=== PATIENT | male | born 1950 | race African-American/Black ===

== ENCOUNTER 2017-01-28 04:13 | Inpatient (IN) | payer OTHER ==
[2017-01-28] MEDS ORDERED: NORMODYNE INJ 20 MG VIAL ONE (04:14)
[2017-01-28] MEDS ORDERED: SOLU-Medrol 125 MG VIAL ONE (04:16)
[2017-01-28] MEDS ORDERED: SOLU-Medrol 125 MG VIAL IVP ONE (04:22)
[2017-01-28] MEDS ORDERED: NORMODYNE INJ 20 MG VIAL IVP ONE (04:23)
[2017-01-28] MEDS ORDERED: DECADRON JET NEB (RESP USE) NEB ONE (04:24)
[2017-01-28 04:28] LABS: BASOPHILS % (AUTO) 0.5 % (0.2-1.0); EOSINOPHILS # (AUTO) 0.3 x10^3/uL (0.0-0.2); EOSINOPHILS % (AUTO) 3.4 % (0.9-2.9); HEMATOCRIT 39.5 % (42.0-54.0); LYMPHOCYTES # (AUTO) 2.6 X10^3/uL (1.3-2.9); LYMPHOCYTES % (AUTO) 27.7 % (21.0-51.0); MEAN CORPUSCULAR HEMOGLOBIN 29.1 pg (27.0-34.0); MEAN CORPUSCULAR HGB CONC 32.8 g/dL (33.0-35.0); MEAN CORPUSCULAR VOLUME 88.5 fL (80.0-100.0); MEAN PLATELET VOLUME 7.8 fL (7.4-11.0); MONOCYTES # (AUTO) 0.7 x10^3/uL (0.3-0.8); MONOCYTES % (AUTO) 7.7 % (0.0-13.0); NEUTROPHILS # (AUTO) 5.8 x10^3/uL (2.2-4.8); NEUTROPHILS % (AUTO) 60.7 % (42.0-75.0); PLATELET COUNT 292 X10^3/uL (150.0-450.0); RED BLOOD COUNT 4.46 X10^6/uL (4.7-6.0); RED CELL DISTRIBUTION WIDTH 14.5 % (11.6-16.5); WHITE BLOOD COUNT 9.5 X10^3/uL (3.6-10.0)
[2017-01-28] MEDS: DUONEB 0.5 MG/3 MG NEB SCH ×6 (04:30→21:21)
[2017-01-28 04:36] LABS: ALANINE AMINOTRANSFERASE 29 Units/L (12-78); ALBUMIN 2.9 g/dL (3.4-5.0); ALKALINE PHOSPHATASE 94 Units/L (46-116); ASPARTATE AMINO TRANSFERASE 37 Units/L (15-37); BLOOD UREA NITROGEN 11 mg/dL (7-18); CALCIUM 8.1 mg/dL (8.5-10.1); CARBON DIOXIDE 31.5 mmol/L (21-32); CHLORIDE 108 mmol/L (98-107); COR NA(FOR HYPERGLY) 145 mmol/L (136-145); CREATININE 1.41 mg/dL (0.70-1.30); SODIUM 144 mmol/L (136-145); TOTAL PROTEIN 7.2 g/dL (6.4-8.2); eGFR BLACK RACES > 60 (>60); eGFR NON BLACK RACES 54 (>60)
--- NOTE | 2017-01-28 04:40 | DR.PEDCOUG ---
HPI - Time Seen Time seen: 04:10 - Complaint Chief Complaint Doctors Comments: Patient presented to the ED via POV with complaint that could not breath. He was diaphoretic in respiratory distress with intercostal rectractions. He was hypertensive BP 277/141. PMH - Past Surgical History Past Surgical History: Yes (unknown) - Vaccines Hx Measles, Mumps, Rubella Vaccination: Yes Hx Varicella Vaccination: Yes Pneumococcal Vaccine Every 5 Yrs: No Hx Meningococcal Vaccination: Yes ROS (Ped) - Review of Systems Constitutional: Diaphoresis Eyes: No Symptoms Reported ENTM: No Symptoms Reported Respiratoy: Short of Breath Cardiovascular: No Symptoms Reported Gastrointestinal/Abdominal: No Symptoms Reported Genitourinary: No Symptoms Reported Neurological: No Symptoms Reported Musculoskeletal: No Symptoms Reported Integumentary: No Symptoms Reported Hematologic/Lymphatic: No Symptoms Reported Endocrine: No Symptoms Reported Psychiatric: No Symptoms Reported All Other Systems: Reviewed and Negative PE - Vitals Vitals: Temperature 99.0 F Pulse Rate [Apical] 89 Pulse Rate 110 Respiratory Rate 22 Blood Pressure [Right Arm] 166/94 Blood Pressure [Left Arm] 158/86 Blood Pressure 258/134 O2 Sat by Pulse Oximetry 100 - General Limitations: No Limitations - Head Head Exam: Normal Inspection, Atraumatic - Eyes Eye exam: Normal Appearance, PERRL, EOMI - ENT ENT Exam: Normal Exam External Ear Exam: Normal External Inspection TM/Canal Exam: Bilateral Normal Nose Exam: Normal Nose Exam Nasal Speculum Exam: Bilateral Normal Mouth Exam: Normal Inspection Teeth Exam: Normal Inspection Throat Exam: Normal Inspection - Neck Neck Exam: Other (supraclavicular retraction) - Chest Chest Inspection: Normal Inspection, Other (intercostal retraction) - Respiratory Respiratory Exam: Accessory Muscle Use, Respiratory Distress Respiratory Exam: Bilateral Wheezing (inspiratory/exp) - Cardiovascular Cardiovascular Exam: Tachycardia - Abdominal Exam Abdominal Exam: Normal Inspection Abdominal Tenderness: negative: RUQ, RLQ, LUQ, LLQ, Epigastrium, Suprapubic, Diffuse, Mild, Moderate, Severe, Other - Extremities Extremities Exam: Normal Inspection, Full ROM - Back Back Exam: Normal Inspection - Neurologic Neurological Exam: Alert, Oriented X3, CN II-XII Intact - Psychiatric Psychiatric Exam: Normal Affect - Skin Skin Exam: Warm, Dry, Intact Course - Treatment Treatment: DuoNebs,oxygen,antihypertensive,NTG, morphine, Non Rebreather - Reevaluation 1st: Improved - Consultation Called: 06:10 (Dr Elkins agreed to admit for further evaluation and treatment) ROR - Labs Reviewed Laboratory Results Reviewed?: Yes Result Diagrams: 01/28/17 04:15 01/28/17 04:15 Laboratory: WBC 9.5 X10^3/uL (3.6-10.0) 01/28/17 04:15 RBC 4.46 X10^6/uL (4.7-6.0) L 01/28/17 04:15 Hgb 13.0 g/dL (13.5-18.0) L 01/28/17 04:15 Hct 39.5 % (42.0-54.0) L 01/28/17 04:15 MCV 88.5 fL (80.0-100.0) 01/28/17 04:15 MCH 29.1 pg (27.0-34.0) 01/28/17 04:15 MCHC 32.8 g/dL (33.0-35.0) L 01/28/17 04:15 RDW 14.5 % (11.6-16.5) 01/28/17 04:15 Plt Count 292 X10^3/uL (150.0-450.0) 01/28/17 04:15 MPV 7.8 fL (7.4-11.0) 01/28/17 04:15 Neut % 60.7 % (42.0-75.0) 01/28/17 04:15 Lymph % 27.7 % (21.0-51.0) 01/28/17 04:15 [place] % 7.7 % (0.0-13.0) 01/28/17 04:15 Eos % 3.4 % (0.9-2.9) H 01/28/17 04:15 Baso % 0.5 % (0.2-1.0) 01/28/17 04:15 Neut # 5.8 x10^3/uL (2.2-4.8) H 01/28/17 04:15 Lymph # 2.6 X10^3/uL (1.3-2.9) 01/28/17 04:15 [place] # 0.7 x10^3/uL (0.3-0.8) 01/28/17 04:15 Eos # 0.3 x10^3/uL (0.0-0.2) H 01/28/17 04:15 Baso # 0.0 X10^3/uL (0.0-0.1) 01/28/17 04:15 Absolute Nucleated RBC 0.0 /100WBC 01/28/17 04:15 Sample Site R rad 01/28/17 05:33 ABG pH 7.240 (7.35-7.45) L 01/28/17 05:33 ABG pCO2 70.0 mmHg (35.0-45.0) H* 01/28/17 05:33 ABG pO2 447.0 mmHg (80.0-100.0) H 01/28/17 05:33 ABG HCO3 30.0 mmol/L (22-26) H 01/28/17 05:33 ABG O2 Saturation 100.0 % (90-100) 01/28/17 05:33 ABG Base Excess 0.9 mmol/L (-2.0-2.0) 01/28/17 05:33 Tomasz Test Pos 01/28/17 05:33 A-a Gradient 179.0 mmHg 01/28/17 05:33 FiO2 100.000 01/28/17 05:33 Blood Gas Comments [facility] well, afh 01/28/17 05:33 Sodium 144 mmol/L (136-145) 01/28/17 04:15 Corrected Sodium 145 mmol/L (136-145) 01/28/17 04:15 Potassium 3.4 mmol/L (3.5-5.1) L 01/28/17 04:15 Chloride 108 mmol/L (98-107) H 01/28/17 04:15 Carbon Dioxide 31.5 mmol/L (21-32) 01/28/17 04:15 BUN 11 mg/dL (7-18) 01/28/17 04:15 Creatinine 1.41 mg/dL (0.70-1.30) H 01/28/17 04:15 Est GFR (MDRD) Af Amer > 60 (>60) 01/28/17 04:15 Est GFR (MDRD) Non-Af 54 (>60) L 01/28/17 04:15 Glucose 127 mg/dL (65-99) H 01/28/17 04:15 Calcium 8.1 mg/dL (8.5-10.1) L 01/28/17 04:15 Corrected Calcium 9.0 mg/dL (8.5-10.1) 01/28/17 04:15 Phosphorus 3.9 mg/dL (2.6-4.7) 01/28/17 04:15 Magnesium 1.2 mg/dL (1.7-2.9) L 01/28/17 04:15 Total Bilirubin 0.40 mg/dL (0.2-1.0) 01/28/17 04:15 AST 37 Units/L (15-37) 01/28/17 04:15 ALT 29 Units/L (12-78) 01/28/17 04:15 Alkaline Phosphatase 94 Units/L (46-116) 01/28/17 04:15 Creatine Kinase 245 Units/L (39-308) 01/28/17 04:15 CK-MB (CK-2) 3.3 ng/mL (0-4.0) 01/28/17 04:15 CK/CKMB % Calc 1.4 % (<4) 01/28/17 04:15 Troponin I 0.22 ng/mL (0-1.5) 01/28/17 04:15 B-Natriuretic Peptide 274 pg/mL (0-79) H 01/28/17 04:15 Total Protein 7.2 g/dL (6.4-8.2) 01/28/17 04:15 Albumin 2.9 g/dL (3.4-5.0) L 01/28/17 04:15 Globulin 4.3 g/dL (2.5-4.5) 01/28/17 04:15 Albumin/Globulin Ratio 0.7 Ratio (1.1-2.1) L 01/28/17 04:15 - XRAY XRAY Interpreted by: Radiologist (Chest: The heart is moderately enlarged and there is central vascular congestion. The interstitial markings are prominent bilaterally. No pneumothorax or pleural effusion. No focal lung parenchymal consolidation identified. ) - Diagnosis Discharge Problem: CHF (congestive heart failure), NYHA class II Qualifiers: Congestive heart failure type: systolic Congestive heart failure chronicity: acute on chronic Qualified Code(s): I50.23 - Acute on chronic systolic ( congestive) heart failure - Discharge Plan Condition: Stable - Follow ups/Referrals Follow ups/Referrals: BREONNA ORELLANA [Primary Care Provider] - 3 days - Instructions
[2017-01-28] MEDS ORDERED: ATIVAN INJ 2 MG VIAL IVP ONE (04:48)
[2017-01-28] MEDS ORDERED: ATIVAN INJ 2 MG VIAL ONE (04:48)
--- NOTE | 2017-01-28 04:55 | RAD ---
EXAM: Chest X-ray INDICATION: Shortness of breath COMPARISION: Prior exam from May 14, 2016 TECHNIQUE: Single view FINDINGS: The heart is moderately enlarged and there is central vascular congestion. The interstitial markings are prominent bilaterally. No pneumothorax or pleural effusion. No focal lung parenchymal consolidati on identified. The regional skeleton is intact. IMPRESSION: Findings are most characteristic of changes associated congestive heart failure. There is cardiomegal y, central vascular congestion, and interstitial edema. Reported By:
[2017-01-28] MEDS ORDERED: MAGNESIUM SULFATE 1 GM/100 mL PREMIX 1 GM/100 ML BAG IV ONE ×2 (04:56→07:31)
[2017-01-28] MEDS ORDERED: LASIX IVP ONE ×2 (04:57)
[2017-01-28] MEDS ORDERED: NS 1000 ML 1,000 ML IV SCH (05:00)
[2017-01-28] MEDS ORDERED: MAGNESIUM SULFATE 50% INJ ONE (05:03)
[2017-01-28] MEDS ORDERED: NS 100 ML IV 100 ML IV ONE (05:04)
[2017-01-28] MEDS ORDERED: MORPHINE SULFATE INJ 4 MG IVP ONE (05:10)
[2017-01-28] MEDS ORDERED: MORPHINE SULFATE INJ 4 MG ONE (05:12)
[2017-01-28 05:16] LABS: CKMB % 1.4 % (<4); CREATINE KINASE MB 3.3 ng/mL (0-4.0); MAGNESIUM 1.2 mg/dL (1.7-2.9); PHOSPHORUS 3.9 mg/dL (2.6-4.7); TROPONIN I 0.22 ng/mL (0-1.5)
[2017-01-28] MEDS ORDERED: NITRO-BID OINT 2% Multi-Dose tube TD ONE (05:16)
[2017-01-28] MEDS ORDERED: NITRO-BID OINT 2% Multi-Dose tube ONE (05:18)
[2017-01-28 06:06] LABS: ABG BASE EXCESS 1.9 mmol/L (-2.0-2.0)
[2017-01-28 06:07] LABS: ABG ALLEN TEST POS; ABG HCO3 30.1 mmol/L (22-26)
[2017-01-28 06:08] LABS: ABG BASE EXCESS 0.9 mmol/L (-2.0-2.0)
[2017-01-28 06:10] LABS: ABG ALLEN TEST POS
[2017-01-28 06:33] LABS: BILIRUBIN,URINE NEGATIVE (NEGATIVE); BLOOD/HEMOGLOBIN,URINE 2+ (NEGATIVE); GLUCOSE, URINE NEGATIVE (NEGATIVE); KETONES,URINE NEGATIVE (NEGATIVE); LEUKOCYTE ESTERASE ,URINE NEGATIVE (NEGATIVE); NITRITES,URINE NEGATIVE (NEGATIVE); PROTEIN,URINE 3+ (NEGATIVE); UROBILINOGEN,URINE NORMAL (NORMAL)
[2017-01-28] MEDS ORDERED: ZOFRAN INJ 4 MG VIAL IVP PRN (06:34)
[2017-01-28 06:59] LABS: APPEARANCE,URINE CLEAR (CLEAR); COLOR,URINE PALE YELLOW (YELLOW); SQUAMOUS EPITHELIAL CELL,UR RARE /HPF (NEGATIVE)
[2017-01-28 07:00] LABS: AMORPHOUS SEDIMENT,UR TRACE /HPF (NEGATIVE); BACTERIA,URINE NEGATIVE /HPF (NEGATIVE)
[2017-01-28 07:08] LABS: ABG BASE EXCESS 3.6 mmol/L (-2.0-2.0)
[2017-01-28 07:09] LABS: ABG HCO3 30.4 mmol/L (22-26)
[2017-01-28 07:10] LABS: ABG ALLEN TEST POS
[2017-01-28] MEDS ORDERED: ZESTRIL TAB 10 MG PO SCH (08:00)
[2017-01-28] MEDS: VASOTEC TAB 10 MG PO SCH ×2 (08:30→09:52)
[2017-01-28] MEDS: LASIX IVP SCH ×3 (08:30→20:11)
[2017-01-28 09:46] VITALS: BMI 23.9
[2017-01-28] MEDS: NS 1000 ML 1,000 ML IV SCH ×2 (09:53→20:22)
[2017-01-28 12:13] LABS: CKMB % 1.7 % (<4); TROPONIN I 0.17 ng/mL (0-1.5)
[2017-01-28 12:22] LABS: CREATINE KINASE MB 4.7 ng/mL (0-4.0)
[2017-01-28] MEDS: K-DUR TAB 20 MEQ PO SCH ×2 (12:23→20:12)
[2017-01-28] MEDS: NORVASC TAB 5 MG PO SCH (12:23)
[2017-01-28] MEDS ORDERED: NORCO 5/325 MG TAB PO PRN (12:28)
[2017-01-28] MEDS ORDERED: K-LYTE EFFERVESCENT PO PRN (12:42)
[2017-01-28] MEDS ORDERED: POTASSIUM CHLORIDE LIQ 20 MEQ UDC PO PRN (12:42)
[2017-01-28] MEDS ORDERED: K-DUR TAB 20 MEQ PO PRN (12:42)
[2017-01-28] MEDS ORDERED: K-RIDER 10 MEQ/NS 100 ML 10 MEQ/100 ML BAG IV PRN (12:42)
[2017-01-28] MEDS ORDERED: NORMODYNE INJ 20 MG VIAL IVP PRN (13:20)
[2017-01-28 17:20] LABS: CKMB % 1.7 % (<4); TROPONIN I 0.12 ng/mL (0-1.5)
[2017-01-28 17:27] LABS: CREATINE KINASE MB 4.6 ng/mL (0-4.0)
[2017-01-28] MEDS: COZAAR PO SCH (20:13)
--- NOTE | 2017-01-28 22:30 | DR.H&P ---
H&P - History & Physical for Day of: H&P Date: 01/28/17 - Chief Complaint Chief Complaint: SHORTNESS OF BREATH - Allergies Allergies/Adverse Reactions: Allergies Allergy/AdvReac Type Severity Reaction Status Date / Time lisinopril Allergy Verified 01/28/17 06:21 - History of Present Illness History of Present Illness: IS A 66 YEAR OLD PATIENT OF OURS WHO PRESENTED TO THE EMERGENCY ROOM WITH COMPLAINTS OF DIFFICULTY BREATHING. ON ARRIVAL, PATIENT WAS IN OBVIOUS RESPIRATORY DISTESS. HE WAS NOTED WITH INTERCOSTAL RETRACTIONS AND WAS DIAPHORETIC. PATIENT REPORTED THAT SYMPTOMS BEGAN 1 HOUR PRIOR TO ARRIVAL TO ER. PATIENT WAS ALSO NOTED TO BE HYPERTENSIVE ON ARRIVAL TO ER WITH BLOOD PRESSURE NOTED AT 258/134. OTHER VITAL SIGNS ON ARRIVAL ARE 99.0-135-36-93%. LABS AND XRAYS WERE OBTAINED. ABNORMAL LAB VALUES INCLUDE RBC 4.46, HGB 13, HCT 39.5, POTASSIUM 3.4, CHLORIDE 108, CREATININE 1.41 , GLUCOSE 127, CALCIUM 8.1, MAGNESIUM 1.2, ALBUMIN 2.9. URINALYSIS REPORTED WBC 1-4, RBC 4-8, PROTEIN 3+, OCCULT BLOOD 2+. ABG REPORTED PH 7.280, PC02 64, P02 199, HC03 30.1. CHEST XRAY REPORTED FINDINGS MOST CHARACTERISTIC OF CHANGES ASSOCIATED WITH CONGESTIVE HEART FAIURE. THERE IS CARDIOMEGALY, CENTRAL VASCULAR CONGESTION, AND INTERSTITIAL EDEMA. PATIENT WAS PLACED ON BIPAP. HE WAS GIVEN SOLUMEDROL 125MG, NORMODYNE 20MG IV, DECADRON TX, ATIVAN 1MG IV, LASIX 40MG IV, MORPHINE 4MG IV, NITRO-BID OINTMENT TO CHEST WALL, MAGNESIUM RIDER X 2, AND VASOTEC 10MG. WE ADMITTED PATIENT FOR FURTHER TREATMENT AND EVALUATION OF CHF. HE WAS STARTED ON NS AT 50ML/HR, LASIX 40MG IV BID, DUONEB TX , LISOPRIL 10MG DAILY, ZOFRAN 4MG IV Q8H PRN, LOSARTAN 100MG HS AMLODIPINE 5MG DAILY, AND POTASSIUM 40MEQ PO BID X 2 DOSES. WE PLAN TO RECHECK AM LABS AND CONTINUE TO MONITOR PATIENT. - Past Medical History Past Medical History: Arthritis, Asthma, CHF, COPD, CVA, Hypertension, PUD - Past Surgical History Additional Surgical History: Prostate Surgery, Right Cataract Surgery - Family History Family Medical History: Hypertension - Social History Does patient currently use any type of tobacco product: Yes Have you used tobacco products in the last 12 months: Yes Type of Tobacco Use: Cigarettes How many years tobacco product used: 50 Alcohol Use: Occasionally Drug Use: None - Medications Home Medications: Amlodipine Besylate [NORVASC 10 MG *] 10 mg PO DAILY 01/28/17 [History Confirmed 01/28/17] Aspirin [ASPIRIN 325 MG *] 325 mg PO DAILY 01/28/17 [History Confirmed 01/28/17] Budesonide-Formoterol [SYMBICORT INH 160/4.5 mcg] 1 puff IN Q12H 01/28/17 [ History Confirmed 01/28/17] Hydralazine HCl 25 mg PO DAILY 01/28/17 [History Confirmed 01/28/17] Metoprolol Tartrate [Lopressor Tab 50 mg] 100 mg PO HS 01/28/17 [History Confirmed 01/28/17] Tamsulosin HCl [Flomax] 0.4 mg PO DAILY 01/28/17 [History Confirmed 01/28/17] - Review of Systems Constitutional: No Symptoms Reported Eyes: No Symptoms Reported ENT: No Symptoms Reported Respiratory: See HPI, Shortness of Breath, Wheezing Cardiovascular: No Symptoms Reported Gastrointestinal: No Symptoms Reported Genitourinary: No Symptoms Reported Musculoskeletal: No Symptoms Reported Skin: No Symptoms Reported Neurological: No Symptoms Reported - Physical Exam Vital Signs: Temperature 98.4 F Pulse Rate [Apical] 88 Pulse Rate 100 Respiratory Rate 23 Blood Pressure [Right Arm] 191/87 Blood Pressure [Left Arm] 158/86 Blood Pressure 258/134 O2 Sat by Pulse Oximetry 95 Oriented: Normal Eyes: Normal Ear: Normal Nose: Normal Throat: Normal Respiratory: Wheezes Throughout Cardiovascular: Tachycardia : Normal Auscultation: Bowel Sounds: Normal Palpation: Normal Tenderness: Normal Skin: Normal Musculoskeletal: Normal Psychiatric: Normal Mood Description: Calm Affect: Normal Speech Pattern: Clear - Assessment/Plan (1) CHF (congestive heart failure), NYHA class II Qualifiers: Congestive heart failure type: systolic Congestive heart failure chronicity : acute on chronic Qualified Code(s): I50.23 - Acute on chronic systolic ( congestive) heart failure Status: Acute Plan: LASIX 40MG IV BID, DUONEBS, CONTINUE TO [facility] (2) Acute and chronic respiratory failure ([id number]) Qualifiers: Respiratory failure complication: hypoxia and hypercapnia Qualified Code(s) : J96.21 - Acute and chronic respiratory failure with hypoxia; J96.22 - Acute and chronic respiratory failure with hypercapnia Status: Acute Plan: DUONEB TX, PULMOCORT TX, LASIX 40MG IV BID, SUPPLEMENTAL OXYGEN, TELEMETRY , CONTINUE TO MONITOR (3) COPD (chronic obstructive pulmonary disease) Qualifiers: COPD type: unspecified COPD Qualified Code(s): J44.9 - Chronic obstructive pulmonary disease, unspecified Status: Acute Plan: DUONEB TX, PULMOCORT TX, LASIX 40MG IV BID, SUPPLEMENTAL OXYGEN, TELEMETRY , CONTINUE TO MONITOR (4) Hypertension Qualifiers: Hypertension type: essential hypertension Qualified Code(s): I10 - Essential (primary) hypertension Status: Acute Plan: LISINOPRIL 10MG DAILY, LOSARTAN 100MG HS, AMLODIPINE 5MG DAILY
[2017-01-29] MEDS: DUONEB 0.5 MG/3 MG NEB SCH ×6 (01:30→20:26)
[2017-01-29 05:00] LABS: BASOPHILS % (AUTO) 0 % (0.2-1.0); HEMATOCRIT 35.5 % (42.0-54.0); HEMOGLOBIN 11.9 g/dL (13.5-18.0); LYMPHOCYTES # (AUTO) 0.6 X10^3/uL (1.3-2.9); MEAN CORPUSCULAR HEMOGLOBIN 28.9 pg (27.0-34.0); MEAN CORPUSCULAR HGB CONC 33.5 g/dL (33.0-35.0); MEAN CORPUSCULAR VOLUME 86.2 fL (80.0-100.0); MEAN PLATELET VOLUME 8.5 fL (7.4-11.0); MONOCYTES # (AUTO) 0.7 x10^3/uL (0.3-0.8); PLATELET COUNT 238 X10^3/uL (150.0-450.0); RED BLOOD COUNT 4.12 X10^6/uL (4.7-6.0); RED CELL DISTRIBUTION WIDTH 14.2 % (11.6-16.5); WHITE BLOOD COUNT 11.2 X10^3/uL (3.6-10.0)
[2017-01-29 05:08] LABS: ALANINE AMINOTRANSFERASE 30 Units/L (12-78); ALBUMIN 2.5 g/dL (3.4-5.0); ALKALINE PHOSPHATASE 74 Units/L (46-116); ASPARTATE AMINO TRANSFERASE 30 Units/L (15-37); BLOOD UREA NITROGEN 24 mg/dL (7-18); CALCIUM 8.4 mg/dL (8.5-10.1); CARBON DIOXIDE 29.5 mmol/L (21-32); CHLORIDE 106 mmol/L (98-107); COR CA(FOR HYPOALB) 9.6 mg/dL (8.5-10.1); CREATININE 1.48 mg/dL (0.70-1.30); SODIUM 142 mmol/L (136-145); TOTAL PROTEIN 6.1 g/dL (6.4-8.2); eGFR BLACK RACES > 60 (>60); eGFR NON BLACK RACES 51 (>60)
[2017-01-29 05:56] LABS: ABG ALLEN TEST POS
[2017-01-29] MEDS ORDERED: MAGNESIUM SULFATE 1 GM/100 mL PREMIX 2 GM/200 ML BAG IV ONE (06:40)
--- NOTE | 2017-01-29 07:03 | RAD ---
HISTORY: CHF Study: AP chest. Comparison: 01/28/2017 Findings: Allowing for differences in technique, positioning, and degree of inspiration, there has been no sign ificant interval change in the radiographic appearance of the chest. Mild prominence the central pulmonary vasculature and perihilar interstitium noted. No focal airspace opacities are seen. Cardiac silhouette is mildly enlarged, stable. IMPRESSION: 1. No significant interval change with findings as above. Stable cardiomegaly and mild venous conges tive changes are noted. Reported By:
[2017-01-29] MEDS: MAGNESIUM SULFATE 1 GM/100 mL PREMIX 1 GM/100 ML BAG IV SCH ×3 (07:15→08:17)
[2017-01-29] MEDS: LASIX IVP SCH ×2 (08:24→20:08)
[2017-01-29] MEDS: NORVASC TAB 5 MG PO SCH (08:24)
[2017-01-29] MEDS ORDERED: NORVASC TAB 5 MG PO SCH (09:53)
[2017-01-29] MEDS ORDERED: NORVASC TAB 5 MG PO ONE (10:13)
[2017-01-29] MEDS: ALBUMIN HUMAN 25%- 100ML 100 ML IV SCH (10:18)
[2017-01-29] MEDS: NS 1000 ML 1,000 ML IV SCH ×2 (10:21→21:59)
[2017-01-29] MEDS: TOPROL XL PO SCH (10:21)
[2017-01-29] MEDS ORDERED: VISTARIL PO PRN (10:31)
[2017-01-29] MEDS: COZAAR PO SCH (20:08)
[2017-01-29] MEDS ORDERED: PATIENT'S HOME MEDICATION (Budesonide-Formoterol 1 PUFF) IN SCH (22:30)
[2017-01-29] MEDS: PULMICORT NEB TX 0.5 MG NEB SCH (23:15)
[2017-01-30] MEDS: DUONEB 0.5 MG/3 MG NEB SCH ×5 (01:15→16:39)
[2017-01-30 04:25] LABS: BASOPHILS % (AUTO) 0.3 % (0.2-1.0); EOSINOPHILS # (AUTO) 0.1 x10^3/uL (0.0-0.2); EOSINOPHILS % (AUTO) 0.4 % (0.9-2.9); HEMATOCRIT 37.8 % (42.0-54.0); HEMOGLOBIN 12.6 g/dL (13.5-18.0); LYMPHOCYTES # (AUTO) 1.4 X10^3/uL (1.3-2.9); LYMPHOCYTES % (AUTO) 10.3 % (21.0-51.0); MEAN CORPUSCULAR HEMOGLOBIN 28.6 pg (27.0-34.0); MEAN CORPUSCULAR HGB CONC 33.4 g/dL (33.0-35.0); MEAN CORPUSCULAR VOLUME 85.6 fL (80.0-100.0); MEAN PLATELET VOLUME 8.4 fL (7.4-11.0); MONOCYTES # (AUTO) 1.1 x10^3/uL (0.3-0.8); MONOCYTES % (AUTO) 7.6 % (0.0-13.0); NEUTROPHILS # (AUTO) 11.3 x10^3/uL (2.2-4.8); NEUTROPHILS % (AUTO) 81.4 % (42.0-75.0); PLATELET COUNT 241 X10^3/uL (150.0-450.0); RED BLOOD COUNT 4.41 X10^6/uL (4.7-6.0); RED CELL DISTRIBUTION WIDTH 14.2 % (11.6-16.5); WHITE BLOOD COUNT 13.9 X10^3/uL (3.6-10.0)
[2017-01-30 04:34] LABS: ALANINE AMINOTRANSFERASE 27 Units/L (12-78); ALBUMIN 2.9 g/dL (3.4-5.0); ALKALINE PHOSPHATASE 74 Units/L (46-116); ASPARTATE AMINO TRANSFERASE 25 Units/L (15-37); BLOOD UREA NITROGEN 21 mg/dL (7-18); CALCIUM 8.6 mg/dL (8.5-10.1); CARBON DIOXIDE 32.1 mmol/L (21-32); CHLORIDE 102 mmol/L (98-107); COR CA(FOR HYPOALB) 9.5 mg/dL (8.5-10.1); CREATININE 1.45 mg/dL (0.70-1.30); SODIUM 141 mmol/L (136-145); TOTAL PROTEIN 6.9 g/dL (6.4-8.2); eGFR BLACK RACES > 60 (>60); eGFR NON BLACK RACES 52 (>60)
[2017-01-30] MEDS: ALBUMIN HUMAN 25%- 100ML 100 ML IV SCH (08:35)
--- NOTE | 2017-01-30 08:35 | RAD ---
HISTORY: Shortness of breath Study: Portable AP chest Comparison: Yesterday Findings: The trachea is midline. The cardiac silhouette is mildly enlarged with a tortuous aorta.. The lungs are very well inflated and grossly clear. There is no pleural effusion or pneumothorax or vascular c ongestion on today's exam.. The bony thorax is unremarkable. IMPRESSION: 1. Hyperinflation compatible with COPD 2. Mild cardiomegaly with a tortuous aorta. Resolution of vascular congestion. Reported By:
[2017-01-30] MEDS: TOPROL XL PO SCH (08:36)
[2017-01-30] MEDS: LASIX IVP SCH (08:37)
[2017-01-30] MEDS: MAGNESIUM SULFATE 1 GM/100 mL PREMIX 1 GM/100 ML BAG IV SCH ×2 (08:55→10:00)
[2017-01-30] MEDS ORDERED: FLOMAX PO SCH (09:00)
--- NOTE | 2017-01-30 09:12 | PCM.PROG ---
Progress Note - Progress Note for Day of Date: 01/29/17 - Subjective Subjective: WAS ADMITTED FOR CONGESTIVE HEART FAILURE. HE IS ALERT AND ORIENTED, LYING IN BED ON MORNING ROUNDS. HE IS NOTED WITH COMPLAINTS OF SHORTNESS OF BREATH AND COUGH. HE IS CURRENTLY ON NASAL CANNULA WITH OXYGEN AT 2LPM. HE IS NOTED TO BE ON TELEMETRY. ATRIAL FLUTTER NOTED WITH HR AT 106 BMP. ON EXAMINATION, LUNGS ARE NOTED WITH WHEEZING BILATERALLY TO AUSCULTATION. ABDOMEN IS ROUND, SOFT, AND NON-TENDER. NORMAL BOWEL SOUNDS NOTED IN ALL QUADRANTS. VITAL SIGNS THIS MORNING ARE 98.1-106-21-97%193/89. CBC, CMP, ABG, AND CHEST XRAY WERE OBTAINED. ABNORMAL LAB VALUES INCLUDE THE FOLLOWING: WBC 11.2, RBC 4.12, HGB 11.9, HCT 35.5, BUN 24, CREATININE 1.48, GLUCOSE 106, CALCIUM 8.4, MAGNESIUM 1.3, TOTAL PROTEIN 6.1, ALBUMIN 2.5. CHEST XRAY REPORTED NO SIGNIFICANT INTERVAL CHANGE, STABLE CARDIOMEGALY AND MILD VENOUS CONGESTIVE CHANGES. PATIENTS BLOOD PRESSURE REMAINS ELEVATED DESPITE RECENT CHANGES TO BLOOD PRESSURE MEDICATIONS. WE WILL START ALBUMIN 25% DAILY, NORVASC 10MG DAILY , AND METOPROLOL XL 25MG DAILY. WE WILL GIVE LASIX 40MG IV Q12H X 2 DOSES. WE PLAN TO RECHECK CBC, CMP, AND CHEST XRAY IN THE MORNING AND CONTINUE TO MONITOR PATIENT. - Past Medical Family Social History Past Med/Fam/Surg Hx: No changes since H&P Allergies: Allergies lisinopril Allergy (Verified 01/28/17 06:21) - Review of Systems ROS: No change since H&P - Vital Signs and I&O's Vital Signs: Temperature 99.3 F Pulse Rate [Apical] 85 Pulse Rate 90 Respiratory Rate 18 Blood Pressure [Right Arm] 153/88 Blood Pressure [Left Arm] 158/86 Blood Pressure 258/134 O2 Sat by Pulse Oximetry 98 Intake and Output: Intake & Output 01/27/17 01/28/17 01/29/17 01/30/17 11:59 11:59 11:59 11:59 Intake Total 7142 2229 Output Total 1000 9130 4300 Balance -7283 -9619 -6447 - Physical Exam Oriented: Normal Eyes: Normal Ear: Normal Nose: Normal Throat: Normal Respiratory: Wheezes Cardiovascular: Tachycardia : Normal Auscultation: Bowel Sounds: Normal Palpation: Normal Tenderness: Normal Skin: Normal Musculoskeletal: Normal Psychiatric: Normal Mood Description: Calm Affect: Normal Speech Pattern: Clear, Appropriate - Laboratory and Diagnostics Result Diagrams: 01/30/17 03:20 01/30/17 03:20 Labs: Laboratory WBC 13.9 X10^3/uL (3.6-10.0) H 01/30/17 03:20 RBC 4.41 X10^6/uL (4.7-6.0) L 01/30/17 03:20 Hgb 12.6 g/dL (13.5-18.0) L 01/30/17 03:20 Hct 37.8 % (42.0-54.0) L 01/30/17 03:20 MCV 85.6 fL (80.0-100.0) 01/30/17 03:20 MCH 28.6 pg (27.0-34.0) 01/30/17 03:20 MCHC 33.4 g/dL (33.0-35.0) 01/30/17 03:20 RDW 14.2 % (11.6-16.5) 01/30/17 03:20 Plt Count 241 X10^3/uL (150.0-450.0) 01/30/17 03:20 MPV 8.4 fL (7.4-11.0) 01/30/17 03:20 Neut % 81.4 % (42.0-75.0) H 01/30/17 03:20 Lymph % 10.3 % (21.0-51.0) L 01/30/17 03:20 [place] % 7.6 % (0.0-13.0) 01/30/17 03:20 Eos % 0.4 % (0.9-2.9) L 01/30/17 03:20 Baso % 0.3 % (0.2-1.0) 01/30/17 03:20 Neut # 11.3 x10^3/uL (2.2-4.8) H 01/30/17 03:20 Lymph # 1.4 X10^3/uL (1.3-2.9) 01/30/17 03:20 [place] # 1.1 x10^3/uL (0.3-0.8) H 01/30/17 03:20 Eos # 0.1 x10^3/uL (0.0-0.2) 01/30/17 03:20 Baso # 0.0 X10^3/uL (0.0-0.1) 01/30/17 03:20 Absolute Nucleated RBC 0.0 /100WBC 01/30/17 03:20 Sample Site R rad 01/29/17 05:44 ABG pH 7.450 (7.35-7.45) 01/29/17 05:44 ABG pCO2 46.0 mmHg (35.0-45.0) H 01/29/17 05:44 ABG pO2 86.0 mmHg (80.0-100.0) 01/29/17 05:44 ABG HCO3 32.0 mmol/L (22-26) H* 01/29/17 05:44 ABG O2 Saturation 97.0 % (90-100) 01/29/17 05:44 ABG Base Excess 7.0 mmol/L (-2.0-2.0) H 01/29/17 05:44 Tomasz Test Pos 01/29/17 05:44 A-a Gradient 6.0 mmHg 01/29/17 05:44 FiO2 21.000 01/29/17 05:44 Blood Gas Comments [facility] well, af 01/29/17 05:44 Sodium 141 mmol/L (136-145) 01/30/17 03:20 Corrected Sodium TNP 01/30/17 03:20 Potassium 3.4 mmol/L (3.5-5.1) L 01/30/17 03:20 Chloride 102 mmol/L (98-107) 01/30/17 03:20 Carbon Dioxide 32.1 mmol/L (21-32) H 01/30/17 03:20 BUN 21 mg/dL (7-18) H 01/30/17 03:20 Creatinine 1.45 mg/dL (0.70-1.30) H 01/30/17 03:20 Est GFR (MDRD) Af Amer > 60 (>60) 01/30/17 03:20 Est GFR (MDRD) Non-Af 52 (>60) L 01/30/17 03:20 Glucose 101 mg/dL (65-99) H 01/30/17 03:20 Calcium 8.6 mg/dL (8.5-10.1) 01/30/17 03:20 Corrected Calcium 9.5 mg/dL (8.5-10.1) 01/30/17 03:20 Phosphorus 3.9 mg/dL (2.6-4.7) 01/28/17 04:15 Magnesium 1.6 mg/dL (1.7-2.9) L 01/30/17 03:20 Total Bilirubin 0.70 mg/dL (0.2-1.0) 01/30/17 03:20 AST 25 Units/L (15-37) 01/30/17 03:20 ALT 27 Units/L (12-78) 01/30/17 03:20 Alkaline Phosphatase 74 Units/L (46-116) 01/30/17 03:20 Creatine Kinase 272 Units/L (39-308) 01/28/17 16:30 CK-MB (CK-2) 4.6 ng/mL (0-4.0) H* 01/28/17 16:30 CK/CKMB % Calc 1.7 % (<4) 01/28/17 16:30 Troponin I 0.12 ng/mL (0-1.5) 01/28/17 16:30 B-Natriuretic Peptide 274 pg/mL (0-79) H 01/28/17 04:15 Total Protein 6.9 g/dL (6.4-8.2) 01/30/17 03:20 Albumin 2.9 g/dL (3.4-5.0) L 01/30/17 03:20 Globulin 4.0 g/dL (2.5-4.5) 01/30/17 03:20 Albumin/Globulin Ratio 0.7 Ratio (1.1-2.1) L 01/30/17 03:20 Specimen Type Catherized urine 01/28/17 06:22 Urine Color Pale yellow (YELLOW) 01/28/17 06:22 Urine Appearance Clear (CLEAR) 01/28/17 06:22 Urine pH 6.0 (5.0 - 8.0) 01/28/17 06:22 Ur Specific [place] 1.005 (1.000-1.030) 01/28/17 06:22 Urine Protein 3+ (NEGATIVE) 01/28/17 06:22 Urine Glucose (UA) Negative (NEGATIVE) 01/28/17 06:22 Urine Ketones Negative (NEGATIVE) 01/28/17 06:22 Urine Occult Blood 2+ (NEGATIVE) 01/28/17 06:22 Urine Nitrite Negative (NEGATIVE) 01/28/17 06:22 Urine Bilirubin Negative (NEGATIVE) 01/28/17 06:22 Urine Urobilinogen Normal (NORMAL) 01/28/17 06:22 Ur Leukocyte Esterase Negative (NEGATIVE) 01/28/17 06:22 Urine RBC 04 - 08 /HPF (NEGATIVE) 01/28/17 06:22 Urine WBC 01 - 04 /HPF (NEGATIVE) 01/28/17 06:22 Ur Squamous Epith Cells Rare /HPF (NEGATIVE) 01/28/17 06:22 Amorphous Sediment Trace /HPF (NEGATIVE) 01/28/17 06:22 Urine Bacteria Negative /HPF (NEGATIVE) 01/28/17 06:22 Ur Culture Indicated? No/not indicated 01/28/17 06:22 - Plan (1) Acute and chronic respiratory failure ([id number]) Status: Acute Qualifiers: Respiratory failure complication: hypoxia and hypercapnia Qualified Code(s) : J96.21 - Acute and chronic respiratory failure with hypoxia; J96.22 - Acute and chronic respiratory failure with hypercapnia Plan: DUONEB TX, PULMOCORT TX, LASIX 40MG IV BID, SUPPLEMENTAL OXYGEN, TELEMETRY , CONTINUE TO MONITOR (2) CHF (congestive heart failure), NYHA class II Status: Acute Qualifiers: Congestive heart failure type: systolic Congestive heart failure chronicity : acute on chronic Qualified Code(s): I50.23 - Acute on chronic systolic ( congestive) heart failure Plan: LASIX 40MG IV BID, DUONEBS, [facility] (3) COPD (chronic obstructive pulmonary disease) Status: Acute Qualifiers: COPD type: unspecified COPD Qualified Code(s): J44.9 - Chronic obstructive pulmonary disease, unspecified Plan: DUONEB TX, PULMOCORT TX, LASIX 40MG IV BID, SUPPLEMENTAL OXYGEN, TELEMETRY , CONTINUE TO MONITOR (4) Hypertension Status: Acute Qualifiers: Hypertension type: essential hypertension Qualified Code(s): I10 - Essential (primary) hypertension Plan: TOPROL 25MG DAILY, LOSARTAN 100MG HS, AMLODIPINE 10MG DAILY, LABETALOL PROTOCOL, CONTINUE TO MONITOR (5) Hypoalbuminemia Status: Acute (6) Hypomagnesemia Status: Acute Plan: MAGNESIUM SULFATE RIDERS, CONTINUE TO MONITOR LABS (7) Hypoalbuminemia Status: Acute Plan: ALBUMIN 25% IV DAILY, CONTINUE TO MONITOR
[2017-01-30] MEDS: PULMICORT NEB TX 0.5 MG NEB SCH (09:43)
[2017-01-30] MEDS: NS 1000 ML 1,000 ML IV SCH (10:19)
[2017-01-30 16:27] VITALS: BP 134/99
== END 2017-01-30 18:45 | disposition home or self-care (01) | DRG 291 ==
LOC: ER 04:13 → ICU 06:26
PROVIDERS: ADMIT Internal Medicine; ATTEND Internal Medicine
DX: I50.23 Acute on chronic systolic (congestive) heart failure (principal); J96.21 Acute and chronic respiratory failure with hypoxia; J96.22 Acute and chronic respiratory failure with hypercapnia; R94.31 Abnormal electrocardiogram [ECG] [EKG]; J44.9 Chronic obstructive pulmonary disease, unspecified; I10 Essential (primary) hypertension; E88.09 Other disorders of plasma-protein metabolism, not elsewhere classified; E83.42 Hypomagnesemia
CPT/HCPCS: 36415; 36600; 51702; 71010; 80053; 81001; 82550; 82553; 82803; 83735; 83880; 84100; 84484; 85025; 93005; 94640; 94660; 96365; 96367; 96374; 96375; 99284; A4222; A4618; A7030; P9047; Q0177; J1940; J2060; J2270; J2930; J3475; J3490; J7620; J7626

== ENCOUNTER 2017-04-01 02:44 | Inpatient (IN) | payer OTHER ==
[2017-04-01] MEDS ORDERED: XOPENEX 1.25 MG/3 ML NEBULE NEB ONE (03:06)
[2017-04-01] MEDS ORDERED: NS 1000 ML 1,000 ML ONE (03:08)
--- NOTE | 2017-04-01 03:13 | DR.GENAD ---
HPI - PCP Primary Care Physician: MATEO - Complaint/Symptoms Chief Complaint Doctors Comments: Patient presented to the ED stating that he can not breath. He has a history of COPD and hypertension, denies chest pain. He reports that he has not been to a doctor in a long time. He was admitted on for COPD. His EKG today shows acute inferior infarct with RBBB troponins are normal. D Dimer of 1000; CTA (limited due to motion) shows no PTE within the visualize lungs, emphysema without visualized acute chest process, cardiomegaly without congestive failure. complaint. He smokes a pack to a pack and half per day and drinks occassionally. Chief Complaint:: " WAS ASLEEP WOKE UP HAVING TROUBLE BREATHING" - Source History Provided: Patient - Mode of Arrival Mode of Arrival: Wheelchair - Timing Onset of Chief Complaint: 04/01/17 PMH - PMH Past Medical History: Yes Past Medical History: Arthritis, Asthma, CHF, COPD, CVA, Hypertension, PUD Past Surgical History: Yes Surgical History: Unknown - Family History History of Family Medical Conditions: Yes Family Medical History: Hypertension - Social History Alcohol Use: Occasionally Do you use any recreational Drugs:: No Lives With: Family Lives Where: Home - infectious screening Have you traveled outside the country in the last 6 months?: No ROS - Review of Systems Eyes: No Symptoms Reported ENTM: No Symptoms Reported Respiratoy: No Symptoms Reported Cardiovascular: No Symptoms Reported Gastrointestinal/Abdominal: No Symptoms Reported Genitourinary: No Symptoms Reported Neurological: No Symptoms Reported Musculoskeletal: No Symptoms Reported Integumentary: No Symptoms Reported Hematologic/Lymphatic: No Symptoms Reported Endocrine: No Symptoms Reported Psychiatric: No Symptoms Reported All Other Systems: Reviewed and Negative PE - Vital Signs Vitals: Temperature 97.5 F Pulse Rate [Brachial] 89 Pulse Rate 95 Respiratory Rate 22 Blood Pressure [Right Arm] 176/89 Blood Pressure [Left Arm] 203/111 Blood Pressure 223/121 O2 Sat by Pulse Oximetry 95 - General General Appearance: Anxious - Head Head Exam: Normal Inspection, Atraumatic - Eyes Eye exam: Normal Appearance, PERRL, EOMI - ENT ENT Exam: Normal Exam External Ear Exam: Normal External Inspection TM/Canal Exam: Bilateral Normal Nose Exam: Normal Nose Exam Mouth Exam: Normal Inspection Throat Exam: Normal Inspection - Neck Neck Exam: Normal Inspection - Chest Chest Inspection: Normal Inspection - Respiratory Respiratory Exam: Normal Lung Sounds Bilat Respiratory Exam: Bilateral Clear to Auscultation - Cardiovascular Cardiovascular Exam: Regular Rate, Normal Rhythm - Abdominal Exam Abdominal Exam: Normal Inspection Abdominal Tenderness: negative: RUQ, RLQ, LUQ, LLQ, Epigastrium, Suprapubic, Diffuse, Mild, Moderate, Severe, Other - Extremities Extremities Exam: Normal Inspection, Full ROM - Back Back Exam: Normal Inspection, Full ROM - Neurologic Neurological Exam: Alert, Oriented X3, CN II-XII Intact - Psychiatric Psychiatric Exam: Normal Affect, Anxious - Skin Skin Exam: Warm, Dry, Intact Course - Treatment Treatment: see orders - Reevaluation 1st: Improved - Consultation Called: 05:35 (Dr Baker recommended repeat cardiacs in 4hrs.) Call Returned: 05:50 (accepted for transfer) ROR - Labs Reviewed Laboratory Results Reviewed?: Yes (D Dimer 1000) Result Diagrams: 04/01/17 03:04 04/01/17 03:04 Laboratory: WBC 6.5 X10^3/uL (3.6-10.0) 04/01/17 03:04 RBC 4.59 X10^6/uL (4.7-6.0) L 04/01/17 03:04 Hgb 13.2 g/dL (13.5-18.0) L 04/01/17 03:04 Hct 39.3 % (42.0-54.0) L 04/01/17 03:04 MCV 85.7 fL (80.0-100.0) 04/01/17 03:04 MCH 28.7 pg (27.0-34.0) 04/01/17 03:04 MCHC 33.5 g/dL (33.0-35.0) 04/01/17 03:04 RDW 14.9 % (11.6-16.5) 04/01/17 03:04 Plt Count 284 X10^3/uL (150.0-450.0) 04/01/17 03:04 MPV 7.9 fL (7.4-11.0) 04/01/17 03:04 Neut % 50.7 % (42.0-75.0) 04/01/17 03:04 Lymph % 34.1 % (21.0-51.0) 04/01/17 03:04 Creek % 10.4 % (0.0-13.0) 04/01/17 03:04 Eos % 3.7 % (0.9-2.9) H 04/01/17 03:04 Baso % 1.1 % (0.2-1.0) H 04/01/17 03:04 Neut # 3.3 x10^3/uL (2.2-4.8) 04/01/17 03:04 Lymph # 2.2 X10^3/uL (1.3-2.9) 04/01/17 03:04 Creek # 0.7 x10^3/uL (0.3-0.8) 04/01/17 03:04 Eos # 0.2 x10^3/uL (0.0-0.2) 04/01/17 03:04 Baso # 0.1 X10^3/uL (0.0-0.1) 04/01/17 03:04 Absolute Nucleated RBC 0.0 /100WBC 04/01/17 03:04 INR Target Range - 04/01/17 03:04 INR 0.92 (0.8-1.3) 04/01/17 03:04 PTT 27.0 SECONDS (22.9-36.5) 04/01/17 03:04 PTT Comment - 04/01/17 03:04 D-Dimer 1000 ng/mL (0-400) H* 04/01/17 03:04 Sample Site Rr 04/01/17 06:30 ABG pH 7.300 (7.35-7.45) L 04/01/17 06:30 ABG pCO2 54.0 mmHg (35.0-45.0) H* 04/01/17 06:30 ABG pO2 83.0 mmHg (80.0-100.0) 04/01/17 06:30 ABG HCO3 26.6 mmol/L (22-26) H 04/01/17 06:30 ABG O2 Saturation 95.0 % (90-100) 04/01/17 06:30 ABG Base Excess -0.6 mmol/L (-2.0-2.0) 04/01/17 06:30 Tomasz Test Pos 04/01/17 06:30 A-a Gradient 63.0 mmHg 04/01/17 06:30 FiO2 30 04/01/17 06:30 Blood Gas Comments Millicent well 04/01/17 06:30 Sodium 142 mmol/L (136-145) 04/01/17 03:04 Corrected Sodium TNP 04/01/17 03:04 Potassium 4.2 mmol/L (3.5-5.1) 04/01/17 03:04 Chloride 107 mmol/L (98-107) 04/01/17 03:04 Carbon Dioxide 28.9 mmol/L (21-32) 04/01/17 03:04 BUN 14 mg/dL (7-18) 04/01/17 03:04 Creatinine 1.30 mg/dL (0.70-1.30) 04/01/17 03:04 Est GFR (MDRD) Af Amer > 60 (>60) 04/01/17 03:04 Est GFR (MDRD) Non-Af 59 (>60) 04/01/17 03:04 Glucose 106 mg/dL (65-99) H 04/01/17 03:04 Calcium 8.7 mg/dL (8.5-10.1) 04/01/17 03:04 Corrected Calcium 9.5 mg/dL (8.5-10.1) 04/01/17 03:04 Magnesium 1.5 mg/dL (1.7-2.9) L 04/01/17 03:04 Total Bilirubin 0.40 mg/dL (0.2-1.0) 04/01/17 03:04 AST 42 Units/L (15-37) H 04/01/17 03:04 ALT 29 Units/L (12-78) 04/01/17 03:04 Alkaline Phosphatase 105 Units/L (46-116) 04/01/17 03:04 Creatine Kinase 161 Units/L (39-308) 04/01/17 03:04 CK-MB (CK-2) 3.7 ng/mL (0-4.0) 04/01/17 03:04 CK/CKMB % Calc 2.3 % (<4) 04/01/17 03:04 Troponin I 0.09 ng/mL (0-1.5) 04/01/17 03:04 Total Protein 7.5 g/dL (6.4-8.2) 04/01/17 03:04 Albumin 3.0 g/dL (3.4-5.0) L 04/01/17 03:04 Globulin 4.5 g/dL (2.5-4.5) 04/01/17 03:04 Albumin/Globulin Ratio 0.7 Ratio (1.1-2.1) L 04/01/17 03:04 - XRAY XRAY Interpreted by: Radiologist (Chest: Ther is stable cardiomegaly without congestive failure. The lungs are again hyperinflated with coarsed interstitial opacities, suggestive for COPD. No focal consolidation, significant effusion or pneumothorax is identified. Osseous thorax is unremarkable. Impression: Stable cardiomegaly and COPD changes without acute cardiopulmonary abnormality.) - EKG Rate: 123 Block: RBBB Hypertrophy: LVH ST: Inf, Infarct - Diagnosis Discharge Problem: COPD exacerbation, Hypomagnesemia Hypertension Qualifiers: Hypertension type: essential hypertension Qualified Code(s): I10 - Essential ( primary) hypertension - Discharge Plan Condition: Stable - Follow ups/Referrals Follow ups/Referrals: SAMMI GALINDO [Primary Care Provider] - 3 days - Instructions
[2017-04-01] MEDS ORDERED: NORMODYNE INJ 100 MG VIAL IVP ONE ×3 (03:15→07:19)
[2017-04-01] MEDS ORDERED: NORMODYNE INJ 20 MG VIAL ONE ×3 (03:20→07:20)
[2017-04-01] MEDS: NS 1000 ML 1,000 ML IV SCH ×3 (03:20→23:44)
[2017-04-01 03:34] LABS: ALANINE AMINOTRANSFERASE 29 Units/L (12-78); ALKALINE PHOSPHATASE 105 Units/L (46-116); ASPARTATE AMINO TRANSFERASE 42 Units/L (15-37); BLOOD UREA NITROGEN 14 mg/dL (7-18); CALCIUM 8.7 mg/dL (8.5-10.1); CARBON DIOXIDE 28.9 mmol/L (21-32); CHLORIDE 107 mmol/L (98-107); COR CA(FOR HYPOALB) 9.5 mg/dL (8.5-10.1); SODIUM 142 mmol/L (136-145); TOTAL PROTEIN 7.5 g/dL (6.4-8.2); eGFR BLACK RACES > 60 (>60); eGFR NON BLACK RACES 59 (>60)
[2017-04-01 03:44] LABS: BASOPHILS # (AUTO) 0.1 X10^3/uL (0.0-0.1); BASOPHILS % (AUTO) 1.1 % (0.2-1.0); EOSINOPHILS # (AUTO) 0.2 x10^3/uL (0.0-0.2); EOSINOPHILS % (AUTO) 3.7 % (0.9-2.9); HEMATOCRIT 39.3 % (42.0-54.0); HEMOGLOBIN 13.2 g/dL (13.5-18.0); LYMPHOCYTES # (AUTO) 2.2 X10^3/uL (1.3-2.9); LYMPHOCYTES % (AUTO) 34.1 % (21.0-51.0); MEAN CORPUSCULAR HEMOGLOBIN 28.7 pg (27.0-34.0); MEAN CORPUSCULAR HGB CONC 33.5 g/dL (33.0-35.0); MEAN CORPUSCULAR VOLUME 85.7 fL (80.0-100.0); MEAN PLATELET VOLUME 7.9 fL (7.4-11.0); MONOCYTES # (AUTO) 0.7 x10^3/uL (0.3-0.8); MONOCYTES % (AUTO) 10.4 % (0.0-13.0); NEUTROPHILS # (AUTO) 3.3 x10^3/uL (2.2-4.8); NEUTROPHILS % (AUTO) 50.7 % (42.0-75.0); PLATELET COUNT 284 X10^3/uL (150.0-450.0); RED BLOOD COUNT 4.59 X10^6/uL (4.7-6.0); RED CELL DISTRIBUTION WIDTH 14.9 % (11.6-16.5); WHITE BLOOD COUNT 6.5 X10^3/uL (3.6-10.0)
[2017-04-01 04:00] LABS: CKMB % 2.3 % (<4); CREATINE KINASE MB 3.7 ng/mL (0-4.0); MAGNESIUM 1.5 mg/dL (1.7-2.9); TROPONIN I 0.09 ng/mL (0-1.5)
--- NOTE | 2017-04-01 04:06 | RAD ---
Chest, one view Indication: Difficulty breathing Comparison: 01/30/2017 Findings: There is stable cardiomegaly without congestive failure. The lungs are again hyperinflated with coarsened interstitial opacities, suggestive for COPD. No focal consolidation, significant effus ion or pneumothorax is identified. Osseous thorax is unremarkable. Impression: Stable cardiomegaly and COPD changes without acute cardiopulmonary abnormality. Reported By:
[2017-04-01] MEDS ORDERED: NS 50 ML IV 50 ML IV ONE (04:47)
--- NOTE | 2017-04-01 05:40 | CT ---
CTA chest Indication: Difficulty breathing Technique: Helical CT images of the chest were obtained with IV contrast. Reformatted images in the c oronal and sagittal planes and 3D MIP images were also generated for review. Comparison: CT chest 12/25/2015 Findings: Portions of the left upper lobe and the majority of the left lower lobe are excluded from t he [id number]. The exam is also moderately degraded by patient motion artifact. Given these limita tions, contrast bolus timing is adequate for detection of PTE. No central or right-sided pulmonary ar terial filling defects are identified. No pulmonary emboli are identified within the visualized porti ons of the left lung. There is no pulmonary arterial dilatation or evidence of right heart strain. Th e heart is mildly enlarged without pericardial effusion. The thoracic aorta is mildly calcified witho ut aneurysm. The central airways are patent. There is no lymphadenopathy. There is moderate upper lobe predominant centrilobular emphysema. The visualized lungs are otherwise clear without focal consolidation or incidental nodule/mass. No significant right pleural effusion or pneumothorax is identified. Limited arterial phase images of the upper abdomen demonstrate no acute abnormality. There is moderat e passive contrast reflux into the hepatic veins. Apparent cortical discontinuity of the inferior rig ht scapular body is felt to be related to motion artifact. No acute or aggressive osseous abnormality is identified. Impression: Limited exam due to motion artifact and technique, as detailed above. No PTE identified within the visualized lungs. Emphysema without visualized acute chest process. Cardiomegaly without congestive failure. Reported By:
[2017-04-01 05:45] LABS: ABG BASE EXCESS -1.9 mmol/L (-2.0-2.0); ABG HCO3 26.8 mmol/L (22-26); FRACTIONATED INSPIRED OXYGEN 36
[2017-04-01 05:46] LABS: ABG ALLEN TEST POS
[2017-04-01] MEDS ORDERED: DUONEB 0.5 MG/3 MG NEB ONE (05:55)
[2017-04-01] MEDS ORDERED: SOLU-Medrol 125 MG VIAL IVP ONE (06:32)
[2017-04-01] MEDS ORDERED: SOLU-Medrol 125 MG VIAL ONE (06:33)
[2017-04-01 06:36] LABS: ABG BASE EXCESS -0.6 mmol/L (-2.0-2.0); ABG HCO3 26.6 mmol/L (22-26)
[2017-04-01 06:37] LABS: ABG ALLEN TEST POS; FRACTIONATED INSPIRED OXYGEN 30
[2017-04-01] MEDS ORDERED: NORMODYNE INJ 100 MG VIAL 250 MG in NS 250 ML IV 200 ML IV PRN (07:31)
[2017-04-01] MEDS ORDERED: NS 250 ML IV 250 ML IV ONE (07:34)
[2017-04-01 07:43] LABS: CKMB % 2.6 % (<4); TROPONIN I 0.09 ng/mL (0-1.5)
[2017-04-01 07:48] LABS: CREATINE KINASE MB 4.5 ng/mL (0-4.0)
[2017-04-01] MEDS ORDERED: NS 1000 ML 1,000 ML IV SCH (08:00)
[2017-04-01] MEDS ORDERED: ATIVAN INJ 2 MG VIAL IVP ONE (08:32)
[2017-04-01] MEDS ORDERED: ATIVAN INJ 2 MG VIAL ONE (08:34)
[2017-04-01 10:12] VITALS: BMI 25.8
[2017-04-01] MEDS ORDERED: TOPROL XL PO SCH (11:00)
[2017-04-01] MEDS ORDERED: PATIENT'S HOME MEDICATION (Budesonide-Formoterol 1 PUFF) IN SCH (11:00)
[2017-04-01] MEDS: FLOMAX PO SCH (12:02)
[2017-04-01] MEDS: NORVASC TAB 10 MG PO SCH (12:03)
[2017-04-01] MEDS: ASPIRIN PO SCH (12:03)
[2017-04-01] MEDS ORDERED: MAXZIDE 37.5/25 MG PO ONE (12:06)
[2017-04-01] MEDS: DUONEB 0.5 MG/3 MG NEB SCH ×3 (12:20→21:16)
[2017-04-01 14:49] LABS: CKMB % 2.6 % (<4); TROPONIN I 0.09 ng/mL (0-1.5)
[2017-04-01 14:58] LABS: CREATINE KINASE MB 5.4 ng/mL (0-4.0)
[2017-04-01] MEDS: COZAAR PO SCH (20:30)
[2017-04-01] MEDS ORDERED: PATIENT'S HOME MEDICATION (Losartan Potassium [Losartan Potassium] 100 MG) PO SCH (21:00)
[2017-04-01] MEDS: PULMICORT NEB TX 0.5 MG NEB SCH (21:17)
[2017-04-02] MEDS: DUONEB 0.5 MG/3 MG NEB SCH ×6 (00:28→20:45)
[2017-04-02 04:41] LABS: ABG ALLEN TEST POS; ABG BASE EXCESS -1.1 mmol/L (-2.0-2.0); ABG HCO3 25.3 mmol/L (22-26); FRACTIONATED INSPIRED OXYGEN 32
[2017-04-02 05:50] LABS: BASOPHILS % (AUTO) 0.2 % (0.2-1.0); HEMATOCRIT 36.9 % (42.0-54.0); HEMOGLOBIN 12.2 g/dL (13.5-18.0); LYMPHOCYTES # (AUTO) 0.8 X10^3/uL (1.3-2.9); LYMPHOCYTES % (AUTO) 6.4 % (21.0-51.0); MEAN CORPUSCULAR HEMOGLOBIN 28.4 pg (27.0-34.0); MEAN PLATELET VOLUME 8.2 fL (7.4-11.0); MONOCYTES # (AUTO) 0.8 x10^3/uL (0.3-0.8); NEUTROPHILS # (AUTO) 11.5 x10^3/uL (2.2-4.8); NEUTROPHILS % (AUTO) 87.4 % (42.0-75.0); PLATELET COUNT 271 X10^3/uL (150.0-450.0); RED BLOOD COUNT 4.29 X10^6/uL (4.7-6.0); RED CELL DISTRIBUTION WIDTH 15.2 % (11.6-16.5); WHITE BLOOD COUNT 13.1 X10^3/uL (3.6-10.0)
[2017-04-02 06:23] LABS: ALANINE AMINOTRANSFERASE 45 Units/L (12-78); ALBUMIN 2.6 g/dL (3.4-5.0); ALKALINE PHOSPHATASE 120 Units/L (46-116); ASPARTATE AMINO TRANSFERASE 42 Units/L (15-37); BLOOD UREA NITROGEN 23 mg/dL (7-18); CALCIUM 8.5 mg/dL (8.5-10.1); CARBON DIOXIDE 25.3 mmol/L (21-32); CHLORIDE 108 mmol/L (98-107); COR CA(FOR HYPOALB) 9.6 mg/dL (8.5-10.1); COR NA(FOR HYPERGLY) 142 mmol/L (136-145); CREATINE KINASE 161 Units/L (39-308); CREATININE 1.44 mg/dL (0.70-1.30); MAGNESIUM 1.5 mg/dL (1.7-2.9); SODIUM 142 mmol/L (136-145); TOTAL PROTEIN 6.8 g/dL (6.4-8.2); TROPONIN I 0.06 ng/mL (0-1.5); eGFR BLACK RACES > 60 (>60); eGFR NON BLACK RACES 52 (>60)
[2017-04-02] MEDS: NS 1000 ML 1,000 ML IV SCH ×3 (06:25→23:07)
[2017-04-02 06:47] LABS: CREATINE KINASE MB 4.8 ng/mL (0-4.0)
[2017-04-02] MEDS ORDERED: MAGNESIUM SULFATE 1 GM/100 mL PREMIX 1 GM/100 ML BAG IV PRN (06:50)
[2017-04-02] MEDS: MAG-OX TAB PO PRN (06:57)
[2017-04-02] MEDS ORDERED: D5 LR 1000 ML 1,000 ML IV ONE (07:26)
[2017-04-02] MEDS ORDERED: TOPROL XL PO ONE (09:25)
[2017-04-02] MEDS: NORVASC TAB 10 MG PO SCH (09:43)
[2017-04-02] MEDS: ASPIRIN PO SCH (09:43)
[2017-04-02] MEDS: MAXZIDE 37.5/25 MG PO SCH (09:44)
[2017-04-02] MEDS: FLOMAX PO SCH (09:44)
[2017-04-02] MEDS: TOPROL XL PO SCH (09:44)
[2017-04-02] MEDS: PULMICORT NEB TX 0.5 MG NEB SCH ×2 (09:45→20:45)
[2017-04-02 11:27] LABS: CKMB % 2.4 % (<4); CREATINE KINASE MB 3.6 ng/mL (0-4.0); TROPONIN I 0.05 ng/mL (0-1.5)
[2017-04-02] MEDS: COZAAR PO SCH (21:04)
[2017-04-03] MEDS: VALIUM PO PRN ×2 (00:33→08:17)
[2017-04-03] MEDS: DUONEB 0.5 MG/3 MG NEB SCH ×4 (01:03→12:01)
[2017-04-03] MEDS: NS 1000 ML 1,000 ML IV SCH (06:00)
[2017-04-03] MEDS: MAG-OX TAB PO PRN (06:20)
[2017-04-03] MEDS: NORVASC TAB 10 MG PO SCH (08:16)
[2017-04-03] MEDS: TOPROL XL PO SCH (08:16)
[2017-04-03] MEDS: MAXZIDE 37.5/25 MG PO SCH (08:16)
[2017-04-03] MEDS: FLOMAX PO SCH (08:17)
[2017-04-03] MEDS: ASPIRIN PO SCH (08:17)
[2017-04-03 12:03] VITALS: BP 133/89
== END 2017-04-03 15:30 | disposition home or self-care (01) | DRG 192 ==
LOC: ER 02:44 → ICU 07:56 → MED/SURG 04-02 14:20
PROVIDERS: ADMIT Obstetrics & Gynecology Obstetrics; ATTEND Obstetrics & Gynecology Obstetrics
DX: J44.1 Chronic obstructive pulmonary disease with (acute) exacerbation (principal); R06.89 Other abnormalities of breathing; R06.02 Shortness of breath; I10 Essential (primary) hypertension; I51.7 Cardiomegaly; I50.9 Heart failure, unspecified; R94.31 Abnormal electrocardiogram [ECG] [EKG]; E83.42 Hypomagnesemia
CPT/HCPCS: 36415; 36600; 71010; 71275; 80053; 82550; 82553; 82803; 83735; 84484; 85025; 85378; 85610; 85730; 93005; 93010; 94640; 94660; 96365; 96367; 96374; 96375; 99284; 99285; A4222; A4618; A7030; J2060; J2930; J3490; J7120; J7620; J7626

== ENCOUNTER 2017-10-04 12:11 | Inpatient (IN) | payer OTHER ==
[~2017-10-04 12:11] MED LIST: ATIVAN INJ 2 MG VIAL ONE; DIPRIVAN VIAL ONE; DUONEB 0.5 MG/3 MG NEB ONE; QUELICIN (OR ANECTINE) ONE
[2017-10-04] MEDS: NS 1000 ML 1,000 ML IV SCH ×2 (12:12→23:00)
[2017-10-04] MEDS ORDERED: NORMODYNE INJ 100 MG VIAL IVP ONE (12:19)
[2017-10-04] MEDS ORDERED: SOLU-Medrol 125 MG VIAL IVP ONE (12:19)
[2017-10-04] MEDS ORDERED: DUONEB 0.5 MG/3 MG NEB ONE (12:20)
[2017-10-04 12:21] LABS: ABG HCO3 27.2 mmol/L (22-26)
[2017-10-04 12:22] LABS: ABG ALLEN TEST POS
[2017-10-04 12:37] LABS: BASOPHILS # (AUTO) 0.1 X10^3/uL (0.0-0.1); BASOPHILS % (AUTO) 0.8 % (0.2-1.0); EOSINOPHILS # (AUTO) 0.2 x10^3/uL (0.0-0.2); EOSINOPHILS % (AUTO) 3.2 % (0.9-2.9); HEMATOCRIT 39.2 % (42.0-54.0); LYMPHOCYTES # (AUTO) 1.8 X10^3/uL (1.3-2.9); LYMPHOCYTES % (AUTO) 29.5 % (21.0-51.0); MEAN CORPUSCULAR HEMOGLOBIN 29.1 pg (27.0-34.0); MEAN CORPUSCULAR HGB CONC 33.2 g/dL (33.0-35.0); MEAN CORPUSCULAR VOLUME 87.8 fL (80.0-100.0); MONOCYTES # (AUTO) 0.6 x10^3/uL (0.3-0.8); MONOCYTES % (AUTO) 8.9 % (0.0-13.0); NEUTROPHILS # (AUTO) 3.6 x10^3/uL (2.2-4.8); NEUTROPHILS % (AUTO) 57.6 % (42.0-75.0); PLATELET COUNT 285 X10^3/uL (150.0-450.0); RED BLOOD COUNT 4.46 X10^6/uL (4.7-6.0); RED CELL DISTRIBUTION WIDTH 15.2 % (11.6-16.5); WHITE BLOOD COUNT 6.2 X10^3/uL (3.6-10.0)
--- NOTE | 2017-10-04 12:51 | RAD ---
HISTORY: Respiratory distress Study: Single view chest Comparison: 04/01/2017 Findings: Single portable view is submitted. There are chronic emphysematous changes present. No infiltrate, ef fusion or pneumothorax identified. Stable mild cardiomegaly. The soft tissues are unremarkable. IMPRESSION: 1. Stable mild cardiomegaly and chronic emphysematous changes. Reported By:
[2017-10-04 12:58] LABS: BLOOD UREA NITROGEN 15 mg/dL (7-18); CALCIUM 7.7 mg/dL (8.5-10.1); CARBON DIOXIDE 28.7 mmol/L (21-32); CHLORIDE 109 mmol/L (98-107); CREATININE 1.45 mg/dL (0.70-1.30); SODIUM 142 mmol/L (136-145); TROPONIN I 0.08 ng/mL (0-1.5); eGFR BLACK RACES > 60 (>60); eGFR NON BLACK RACES 52 (>60)
[2017-10-04 13:17] LABS: ALANINE AMINOTRANSFERASE 21 Units/L (12-78); ALBUMIN 3.1 g/dL (3.4-5.0); ALKALINE PHOSPHATASE 82 Units/L (46-116); ASPARTATE AMINO TRANSFERASE 31 Units/L (15-37); CKMB % 2.6 % (<4); COR CA(FOR HYPOALB) 8.4 mg/dL (8.5-10.1); CREATINE KINASE 184 Units/L (39-308); MAGNESIUM 1.5 mg/dL (1.7-2.9); TOTAL PROTEIN 7.6 g/dL (6.4-8.2)
[2017-10-04 13:21] LABS: CREATINE KINASE MB 4.8 ng/mL (0-4.0)
--- NOTE | 2017-10-04 13:52 | DR.SOBA ---
HPI - Time Seen Time seen: 12:25 - Primary Care Physician Primary Care Physician: MATEO OLIVER - Complaints Chief Complaint Doctors Comments: Patient presented to the ED for severe shortness of breath of acute onset. Patient with a history of COPD and has been seen several times in the past with severe respiratory distress. Chief Complaint:: EMS OUT TO PT WITH SOB, AND UPON ARRIVAL PT WAS ON 0.5 02 LPM AND PT WAS IN RESP DISRESS NOTED LABORDED BREATHING AND RESP UP, NRP PLACED AND PT TT ER,,, SEE NURSES NOTES. - Source History Provided: Patient, EMS, Other - Mode of Arrival Mode of Arrival: EMS - Timing Onset of Chief Complaint: 10/04/17 PMH - PMH Past Medical History: Yes Past Medical History: Arthritis, Asthma, CHF, COPD, CVA, Hypertension, PUD Past Surgical History: Yes Surgical History: Unknown - Family History History of Family Medical Conditions: Yes Family Medical History: Hypertension - Social History Does patient currently use any type of tobacco product: Yes Have you used tobacco products in the last 12 months: Yes Type of Tobacco Use: Cigarettes Does any household member use tobacco: No Alcohol Use: None Do you use any recreational Drugs:: No Lives With: Family Lives Where: Home - infectious screening In the last 2 months have you had wt loss of >10#?: NO Have you had fever, night sweats or hemotysis?: No Have you traveled outside the country in the last 6 months?: No Isolation: Standard ROS - Review of Systems Constitutional: Fatigue Eyes: No Symptoms Reported ENTM: No Symptoms Reported Respiratoy: Non-Productive Cough, Short of Breath, Wheezing Cardiovascular: No Symptoms Reported Gastrointestinal/Abdominal: No Symptoms Reported Genitourinary: No Symptoms Reported Neurological: No Symptoms Reported Musculoskeletal: No Symptoms Reported Integumentary: No Symptoms Reported Hematologic/Lymphatic: No Symptoms Reported Endocrine: No Symptoms Reported Psychiatric: No Symptoms Reported All Other Systems: Reviewed and Negative PE - Vital Signs Vitals: Temperature 98.4 F Pulse Rate [Apical] 80 Pulse Rate 124 Respiratory Rate 18 Blood Pressure [Right Arm] 138/75 Blood Pressure [Left Arm] 149/85 Blood Pressure 252/176 O2 Sat by Pulse Oximetry 100 - General Limitations: Physical Limitation General Appearance: In Distress - Head Head Exam: Normal Inspection, Atraumatic - Eyes Eye exam: Normal Appearance, PERRL, EOMI - Neck Neck Exam: Normal Inspection - Chest Chest Inspection: Normal Inspection - Respiratory Respiratory Exam: Accessory Muscle Use, Prolonged Expiratory Phase Respiratory Exam: Bilateral Clear to Auscultation - Cardiovascular Cardiovascular Exam: Tachycardia - Abdominal Exam Abdominal Exam: Normal Inspection, Normal Bowel Sounds Abdominal Tenderness: negative: RUQ, RLQ, LUQ, LLQ, Epigastrium, Suprapubic, Diffuse, Mild, Moderate, Severe, Other - Extremities Extremities Exam: Normal Inspection - Back Back Exam: Normal Inspection - Neurologic Neurological Exam: Alert, Oriented X3, CN II-XII Intact - Psychiatric Psychiatric Exam: Anxious - Skin Skin Exam: Warm, Other (very diaphoretic) Course - Reevaluation 1st: Improved ROR - Labs Reviewed Result Diagrams: 10/04/17 12:17 10/04/17 12:17 Laboratory: WBC 6.2 X10^3/uL (3.6-10.0) 10/04/17 12:17 RBC 4.46 X10^6/uL (4.7-6.0) L 10/04/17 12:17 Hgb 13.0 g/dL (13.5-18.0) L 10/04/17 12:17 Hct 39.2 % (42.0-54.0) L 10/04/17 12:17 MCV 87.8 fL (80.0-100.0) 10/04/17 12:17 MCH 29.1 pg (27.0-34.0) 10/04/17 12:17 MCHC 33.2 g/dL (33.0-35.0) 10/04/17 12:17 RDW 15.2 % (11.6-16.5) 10/04/17 12:17 Plt Count 285 X10^3/uL (150.0-450.0) 10/04/17 12:17 MPV 8.0 fL (7.4-11.0) 10/04/17 12:17 Neut % (Auto) 57.6 % (42.0-75.0) 10/04/17 12:17 Lymph % (Auto) 29.5 % (21.0-51.0) 10/04/17 12:17 Kinney % (Auto) 8.9 % (0.0-13.0) 10/04/17 12:17 Eos % (Auto) 3.2 % (0.9-2.9) H 10/04/17 12:17 Baso % (Auto) 0.8 % (0.2-1.0) 10/04/17 12:17 Neut # (Auto) 3.6 x10^3/uL (2.2-4.8) 10/04/17 12:17 Lymph # (Auto) 1.8 X10^3/uL (1.3-2.9) 10/04/17 12:17 Kinney # (Auto) 0.6 x10^3/uL (0.3-0.8) 10/04/17 12:17 Eos # (Auto) 0.2 x10^3/uL (0.0-0.2) 10/04/17 12:17 Baso # (Auto) 0.1 X10^3/uL (0.0-0.1) 10/04/17 12:17 Absolute Nucleated RBC 0.0 /100WBC 10/04/17 12:17 INR Target Range - 10/04/17 12:17 INR 0.97 (0.8-1.3) 10/04/17 12:17 APTT 27.7 SECONDS (22.9-36.5) 10/04/17 12:17 PTT Comment - 10/04/17 12:17 D-Dimer 985 ng/mL (0-400) H* 10/04/17 12:17 Sample Site Rra 10/04/17 12:18 ABG pH 7.210 (7.35-7.45) L 10/04/17 12:18 ABG pCO2 68.0 mmHg (35.0-45.0) H* 10/04/17 12:18 ABG pO2 209.0 mmHg (80.0-100.0) H 10/04/17 12:18 ABG HCO3 27.2 mmol/L (22-26) H 10/04/17 12:18 ABG O2 Saturation 100.0 % (90-100) 10/04/17 12:18 ABG Base Excess -2.0 mmol/L (-2.0-2.0) 10/04/17 12:18 Tomasz Test Pos 10/04/17 12:18 A-a Gradient 419.0 mmHg 10/04/17 12:18 FiO2 100.000 10/04/17 12:18 Blood Gas Comments Millicent well cn 10/04/17 12:18 Sodium 142 mmol/L (136-145) 10/04/17 12:17 Corrected Sodium TNP 10/04/17 12:17 Potassium 4.5 mmol/L (3.5-5.1) 10/04/17 12:17 Chloride 109 mmol/L (98-107) H 10/04/17 12:17 Carbon Dioxide 28.7 mmol/L (21-32) 10/04/17 12:17 BUN 15 mg/dL (7-18) 10/04/17 12:17 Creatinine 1.45 mg/dL (0.70-1.30) H 10/04/17 12:17 Est GFR (MDRD) Af Amer > 60 (>60) 10/04/17 12:17 Est GFR (MDRD) Non-Af 52 (>60) L 10/04/17 12:17 Glucose 88 mg/dL (65-99) 10/04/17 12:17 Calcium 7.7 mg/dL (8.5-10.1) L 10/04/17 12:17 Corrected Calcium 8.4 mg/dL (8.5-10.1) L 10/04/17 12:17 Magnesium 1.5 mg/dL (1.7-2.9) L 10/04/17 12:17 Total Bilirubin 0.60 mg/dL (0.2-1.0) 10/04/17 12:17 AST 31 Units/L (15-37) 10/04/17 12:17 ALT 21 Units/L (12-78) 10/04/17 12:17 Alkaline Phosphatase 82 Units/L (46-116) 10/04/17 12:17 Creatine Kinase 184 Units/L (39-308) 10/04/17 12:17 CK-MB (CK-2) 4.8 ng/mL (0-4.0) H* 10/04/17 12:17 CK/CKMB % Calc 2.6 % (<4) 10/04/17 12:17 Troponin I 0.08 ng/mL (0-1.5) 10/04/17 12:17 Total Protein 7.6 g/dL (6.4-8.2) 10/04/17 12:17 Albumin 3.1 g/dL (3.4-5.0) L 10/04/17 12:17 Globulin 4.5 g/dL (2.5-4.5) 10/04/17 12:17 Albumin/Globulin Ratio 0.7 Ratio (1.1-2.1) L 10/04/17 12:17 - XRAY XRAY Interpreted by: Radiologist (Chest; There are chronic emphysematous changes present. No infiltrate, effusion or penumothorax identified. Stable mild cardiomegaly) - Diagnosis Discharge Problem: Left ankle sprain - Discharge Plan Condition: Stable - Follow ups/Referrals Follow ups/Referrals: SAMMI GALINDO [Primary Care Provider] - 3 days - Instructions
[2017-10-04] MEDS ORDERED: NS 100 ML IV 100 ML IV ONE (14:05)
[2017-10-04 14:32] LABS: ABG BASE EXCESS -1.4 mmol/L (-2.0-2.0); ABG HCO3 25.6 mmol/L (22-26)
[2017-10-04 14:33] LABS: ABG ALLEN TEST POS
--- NOTE | 2017-10-04 16:14 | CT ---
History: Shortness of breath, elevated D-dimer Study: CTA chest Findings: Thin-section helical CT imaging through the chest is performed during the rapid intravenous administration of 75 mL of Omnipaque 350. Coronal and sagittal MIPS images are submitted as well. Th ere is excellent opacification of the pulmonary arteries with no filling defect or vascular cut off t o indicate pulmonary embolus. The thoracic aorta is normal in caliber. There are tiny bilateral pleur al effusions with limited atelectasis in the posterior costophrenic angles. There is evidence of mild centrilobular pulmonary emphysema. Visualized upper abdominal structures appear unremarkable. Impression: No evidence of pulmonary embolus. Small bilateral pleural effusions with limited bibasilar atelectasis. Reported By:
[2017-10-04 16:28] LABS: BILIRUBIN,URINE NEGATIVE (NEGATIVE); BLOOD/HEMOGLOBIN,URINE 1+ (NEGATIVE); GLUCOSE, URINE NEGATIVE (NEGATIVE); KETONES,URINE NEGATIVE (NEGATIVE); LEUKOCYTE ESTERASE ,URINE NEGATIVE (NEGATIVE); NITRITES,URINE NEGATIVE (NEGATIVE); PROTEIN,URINE 4+ (NEGATIVE); UROBILINOGEN,URINE NORMAL (NORMAL)
[2017-10-04 16:33] LABS: APPEARANCE,URINE CLEAR (CLEAR); COLOR,URINE YELLOW (YELLOW)
[2017-10-04 16:34] LABS: AMORPHOUS SEDIMENT,UR TRACE /HPF (NEGATIVE); BACTERIA,URINE TRACE /HPF (NEGATIVE); RBC,URINE 0-2 /HPF (NONE SEEN); SQUAMOUS EPITHELIAL CELL,UR RARE /HPF (NEGATIVE)
[2017-10-04] MEDS: DUONEB 0.5 MG/3 MG NEB SCH ×2 (16:54→21:03)
[2017-10-04 17:24] VITALS: BMI 20.8
[2017-10-04 17:45] LABS: TROPONIN I 0.09 ng/mL (0-1.5)
[2017-10-04] MEDS ORDERED: NS 250 ML IV 250 ML IV ONE (17:51)
[2017-10-04 17:55] LABS: CREATINE KINASE MB 5.3 ng/mL (0-4.0)
[2017-10-04] MEDS: NORMODYNE INJ 100 MG VIAL 250 MG in NS 250 ML IV 200 ML IV PRN ×2 (18:20→22:29)
[2017-10-05] MEDS: DUONEB 0.5 MG/3 MG NEB SCH ×6 (01:00→21:40)
[2017-10-05 02:11] LABS: CKMB % 3.5 % (<4); TROPONIN I 0.05 ng/mL (0-1.5)
[2017-10-05 02:29] LABS: CREATINE KINASE MB 5.1 ng/mL (0-4.0)
[2017-10-05 05:37] LABS: BASOPHILS % (AUTO) 0.2 % (0.2-1.0); HEMATOCRIT 35.3 % (42.0-54.0); HEMOGLOBIN 11.7 g/dL (13.5-18.0); LYMPHOCYTES # (AUTO) 0.5 X10^3/uL (1.3-2.9); LYMPHOCYTES % (AUTO) 9.4 % (21.0-51.0); MEAN CORPUSCULAR HGB CONC 33.1 g/dL (33.0-35.0); MEAN CORPUSCULAR VOLUME 87.7 fL (80.0-100.0); MEAN PLATELET VOLUME 8.5 fL (7.4-11.0); MONOCYTES # (AUTO) 0.2 x10^3/uL (0.3-0.8); MONOCYTES % (AUTO) 3.1 % (0.0-13.0); NEUTROPHILS # (AUTO) 4.4 x10^3/uL (2.2-4.8); NEUTROPHILS % (AUTO) 87.3 % (42.0-75.0); PLATELET COUNT 247 X10^3/uL (150.0-450.0); RED BLOOD COUNT 4.02 X10^6/uL (4.7-6.0); RED CELL DISTRIBUTION WIDTH 14.9 % (11.6-16.5)
[2017-10-05 05:41] LABS: ALANINE AMINOTRANSFERASE 21 Units/L (12-78); ALBUMIN 2.4 g/dL (3.4-5.0); ALKALINE PHOSPHATASE 67 Units/L (46-116); ASPARTATE AMINO TRANSFERASE 23 Units/L (15-37); BLOOD UREA NITROGEN 22 mg/dL (7-18); CALCIUM 7.3 mg/dL (8.5-10.1); CARBON DIOXIDE 25.5 mmol/L (21-32); CHLORIDE 109 mmol/L (98-107); COR CA(FOR HYPOALB) 8.6 mg/dL (8.5-10.1); COR NA(FOR HYPERGLY) 140 mmol/L (136-145); CREATININE 1.27 mg/dL (0.70-1.30); SODIUM 139 mmol/L (136-145); eGFR BLACK RACES > 60 (>60); eGFR NON BLACK RACES > 60 (>60)
--- NOTE | 2017-10-05 06:49 | DR.H&P ---
H&P - History & Physical for Day of: H&P Date: 10/04/17 - Chief Complaint Chief Complaint: SOB, RESP DISTRESS - Allergies Allergies/Adverse Reactions: Allergies Allergy/AdvReac Type Severity Reaction Status Date / Time lisinopril Allergy Verified 01/28/17 06:21 - History of Present Illness History of Present Illness: Patient presented to the ED for severe shortness of breath of acute onset. Patient with a history of COPD and has been seen several times in the past with severe respiratory distress. Pt admitted to ICU for treatment and evaluation of SOB. - Past Medical History Past Medical History: Arthritis, Asthma, CHF, COPD, CVA, Hypertension, PUD - Past Surgical History Surgical History: Unknown Additional Surgical History: Prostate Surgery, Right Cataract Surgery - Family History Family Medical History: Hypertension - Social History Does patient currently use any type of tobacco product: Yes Have you used tobacco products in the last 12 months: Yes Type of Tobacco Use: Cigarettes Does any household member use tobacco: No Alcohol Use: Occasionally Drug Use: None - Medications Home Medications: No Known Home Medications 1 tab PO .NONE 10/04/17 [History Confirmed 10/04/17] - Review of Systems Constitutional: Weakness Eyes: No Symptoms Reported ENT: No Symptoms Reported Respiratory: Cough, Shortness of Breath, SOB with Excertion, Wheezing Cardiovascular: Chest Pain Gastrointestinal: No Symptoms Reported Genitourinary: No Symptoms Reported Skin: No Symptoms Reported Neurological: Weakness - Physical Exam Vital Signs: Temperature 97.6 F Pulse Rate [Apical] 85 Pulse Rate 87 Respiratory Rate 20 Blood Pressure [Right Arm] 138/75 Blood Pressure [Left Arm] 156/83 Blood Pressure 252/176 O2 Sat by Pulse Oximetry 100 Oriented: Normal Eyes: Normal Ear: Normal Nose: Normal Throat: Normal Respiratory: Diminished Throughout, Wheezes Throughout Cardiovascular: Tachycardia. negative: Edema : Normal Auscultation: Bowel Sounds: Normal Palpation: Normal Tenderness: Normal Skin: Decreased Turgur Musculoskeletal: Back:Lumbar Psychiatric: Normal, Agitation Mood Description: Anxious Affect: Anxious Speech Pattern: Clear - Assessment/Plan (1) Acute and chronic respiratory failure ([id number]) Qualifiers: Status: Acute Plan: ADMIT ICU, RESP THERAPY. SUPPLEMENTAL O2. IV STEROIDS, SERIAL EKG'S CARDIAC ENZYMES. VERIFY HOME MEDS, CONTINUOUS BRANCH LEAD. BP MONITORING LABETALOL PROTOCOL (2) CAD (coronary artery disease) Status: Acute (3) CHF (congestive heart failure), NYHA class II Status: Acute (4) COPD (chronic obstructive pulmonary disease) Qualifiers: Status: Acute (5) CVA (cerebral vascular accident) Status: Acute
[2017-10-05] MEDS: NORVASC TAB 5 MG PO SCH ×2 (07:46→12:24)
[2017-10-05] MEDS: ZITHROMAX INJ 500 MG VIAL 500 MG in NS 250 ML IV 250 ML IV SCH ×2 (07:49→12:24)
[2017-10-05] MEDS: SOLU-Medrol 40 MG VIAL IVP SCH ×3 (07:49→20:59)
[2017-10-05 09:28] LABS: ABG ALLEN TEST POS; ABG HCO3 21.1 mmol/L (22-26)
[2017-10-05] MEDS: NS 1000 ML 1,000 ML IV SCH ×3 (13:21→20:59)
[2017-10-05] MEDS: VISTARIL PO PRN ×2 (13:28→20:59)
[2017-10-05] MEDS: ASPIRIN PO SCH (19:06)
[2017-10-06] MEDS: DUONEB 0.5 MG/3 MG NEB SCH ×5 (00:57→17:45)
[2017-10-06] MEDS: NORMODYNE INJ 100 MG VIAL 250 MG in NS 250 ML IV 200 ML IV PRN ×2 (03:57→07:50)
[2017-10-06] MEDS: VISTARIL PO PRN (06:09)
[2017-10-06] MEDS: NS 1000 ML 1,000 ML IV SCH ×2 (06:09→07:18)
[2017-10-06 06:17] LABS: BASOPHILS % (AUTO) 0.3 % (0.2-1.0); HEMATOCRIT 36.7 % (42.0-54.0); LYMPHOCYTES # (AUTO) 0.3 X10^3/uL (1.3-2.9); LYMPHOCYTES % (AUTO) 3.8 % (21.0-51.0); MEAN CORPUSCULAR HEMOGLOBIN 29.2 pg (27.0-34.0); MEAN CORPUSCULAR HGB CONC 32.8 g/dL (33.0-35.0); MEAN CORPUSCULAR VOLUME 88.9 fL (80.0-100.0); MEAN PLATELET VOLUME 8.6 fL (7.4-11.0); MONOCYTES # (AUTO) 0.1 x10^3/uL (0.3-0.8); MONOCYTES % (AUTO) 1.6 % (0.0-13.0); NEUTROPHILS # (AUTO) 8.3 x10^3/uL (2.2-4.8); NEUTROPHILS % (AUTO) 94.3 % (42.0-75.0); PLATELET COUNT 241 X10^3/uL (150.0-450.0); RED BLOOD COUNT 4.13 X10^6/uL (4.7-6.0); RED CELL DISTRIBUTION WIDTH 14.9 % (11.6-16.5); WHITE BLOOD COUNT 8.8 X10^3/uL (3.6-10.0)
[2017-10-06 06:30] LABS: ALANINE AMINOTRANSFERASE 21 Units/L (12-78); ALBUMIN 2.4 g/dL (3.4-5.0); ALKALINE PHOSPHATASE 70 Units/L (46-116); ASPARTATE AMINO TRANSFERASE 23 Units/L (15-37); BLOOD UREA NITROGEN 24 mg/dL (7-18); CALCIUM 7.2 mg/dL (8.5-10.1); CHLORIDE 110 mmol/L (98-107); COR CA(FOR HYPOALB) 8.5 mg/dL (8.5-10.1); COR NA(FOR HYPERGLY) 142 mmol/L (136-145); CREATININE 1.36 mg/dL (0.70-1.30); SODIUM 140 mmol/L (136-145); eGFR BLACK RACES > 60 (>60); eGFR NON BLACK RACES 56 (>60)
[2017-10-06 06:42] LABS: BAND NEUTROPHILS % 1 % (0-10); PLATELET MORPHOLOGY COMMENT NORMAL (NORMAL)
[2017-10-06] MEDS: ZITHROMAX INJ 500 MG VIAL 500 MG in NS 250 ML IV 250 ML IV SCH (08:40)
[2017-10-06] MEDS: ASPIRIN PO SCH (08:40)
[2017-10-06] MEDS: NORVASC TAB 5 MG PO SCH (08:40)
[2017-10-06] MEDS: DIPRIVAN PREMIX 1 GM IV 1,000 MG/100 ML VIAL IV PRN ×2 (12:15→19:46)
--- NOTE | 2017-10-06 12:17 | RAD ---
Examination: Portable AP chest History: ET placement Comparison reference 10/06/2017 Findings: Stable cardiomegaly with essentially clear peripheral lungs and pleural spaces. Endotrachea l tube is in mid trachea, well above the blaise. No pneumothorax seen. Impression: Interval intubation. Reported By:
--- NOTE | 2017-10-06 12:20 | RAD ---
HISTORY: Unresponsive, respiratory distress, CO, hypertensive Study: Single-view chest. Exam done 10/06/2017 at 11:46 a.m. Comparison: CT chest done 10/04/2017 Findings: Trachea is midline. There is cardiomegaly with aortic uncoiling. There is hyperinflation of the lungs . Increased interstitial markings likely represent COPD in the appropriate clinical setting. No conso lidation, pneumothorax or radiographically significant pleural fluid is seen. Osseous structures are intact. IMPRESSION: Hypertensive configuration. Changes of COPD. No radiographically significant pleural fluid or pneumothorax is seen. Reported By:
[2017-10-06] MEDS ORDERED: CATAPRES TAB 0.1 MG PO PRN (12:37)
[2017-10-06] MEDS ORDERED: APRESOLINE INJ 20 MG VIAL IVP PRN (12:41)
--- NOTE | 2017-10-06 12:50 | DR.UPDATE ---
H&P Update History and Physical Update: History and Physical reviewed and patient examined. Changes noted: NO Yes with the following:agree with H&P. Pt in acute respiratory distress requiring intubation. Procedures (ALL) - Intubation Time out performed: Yes Sedative: other (propofol 200mg) paralytic: succinylchline (100mg) Laryngoscope: dany (3 x 1 att) ET tube size: 8 Tube secured depth: 22 at gum Tube secured location: other Tube placement confirmation: visualized tube passing through cords, equal breath sounds bilaterally, no breath sounds over epigastrium, comfirmation by capnometer Patient tolerated procedure: Yes Intubation complications: none
[2017-10-06 12:58] LABS: ABG BASE EXCESS -7.6 mmol/L (-2.0-2.0); ABG HCO3 20.4 mmol/L (22-26)
[2017-10-06 12:58] LABS: ABG BASE EXCESS -6.9 mmol/L (-2.0-2.0); ABG HCO3 24.3 mmol/L (22-26)
[2017-10-06 13:00] LABS: ABG ALLEN TEST POS
[2017-10-06] MEDS ORDERED: LASIX IVP ONE (13:00)
[2017-10-06] MEDS ORDERED: ROCEPHIN 1 GM IV PREMIX 1 GM/50 ML IV.SOLN. IV SCH (13:00)
[2017-10-06] MEDS ORDERED: NS 1000 ML 1,000 ML IV SCH (13:00)
--- NOTE | 2017-10-06 14:47 | RAD ---
Examination: Portable KUB History: NG placement Findings: NG tube tip appears to be in the lower esophagus well above the gastroesophageal junction. The visualized intestinal gas pattern is normal. The lung bases are clear. Impression: Findings indicate NG tube is in the lower esophagus. Reported By:
[2017-10-06] MEDS ORDERED: LASIX IVP NR (16:00)
[2017-10-06 17:19] LABS: CKMB % 1.5 % (<4); TROPONIN I 0.03 ng/mL (0-1.5)
[2017-10-06 17:25] LABS: CREATINE KINASE MB 4.7 ng/mL (0-4.0)
--- NOTE | 2017-10-06 19:03 | RAD ---
HISTORY: NG tube placement Study: Single view chest Comparison: 10/06/2017 Findings: Endotracheal terminates 5 cm from the blaise. Enteric tube is seen extending into the region of the s tomach with tip outside the field of view stable pulmonary vascular congestion and cardiomegaly. No p neumothorax identified. IMPRESSION: 1. Endotracheal tube in satisfactory position. 2. Enteric tube is seen in the region of the stomach with tip outside the field of view. Reported By:
[2017-10-06 21:07] LABS: TROPONIN I 0.04 ng/mL (0-1.5)
[2017-10-06 21:14] LABS: CREATINE KINASE MB 4.3 ng/mL (0-4.0)
[2017-10-06 22:06] VITALS: BP 163/88
== END 2017-10-06 22:11 | disposition critical access hospital (66) | DRG 208 ==
LOC: ER 12:11 → ICU 14:16 → OBSVTOIN 18:20 → ICU 10-06 12:20
PROVIDERS: ADMIT Internal Medicine; ATTEND Internal Medicine
PROC: 0BH17EZ Insertion of Endotracheal Airway into Trachea, Via Natural or Artificial Opening (ICD-10-PCS; principal; 2017-10-06)
PROC: 5A1935Z Respiratory Ventilation, Less than 24 Consecutive Hours (ICD-10-PCS; 2017-10-06)
PROC: 0D9670Z Drainage of Stomach with Drainage Device, Via Natural or Artificial Opening (ICD-10-PCS; 2017-10-06)
DX: J96.20 Acute and chronic respiratory failure, unspecified whether with hypoxia or hypercapnia (principal); I63.8 Other cerebral infarction; J44.1 Chronic obstructive pulmonary disease with (acute) exacerbation; J20.8 Acute bronchitis due to other specified organisms; I10 Essential (primary) hypertension; S93.492A Sprain of other ligament of left ankle, initial encounter; X58.XXXA Exposure to other specified factors, initial encounter; Y92.89 Other specified places as the place of occurrence of the external cause; I50.9 Heart failure, unspecified; I16.0 Hypertensive urgency; R26.89 Other abnormalities of gait and mobility
CPT/HCPCS: 36415; 36600; 71045; 71275; 74018; 80053; 80307; 81001; 82550; 82553; 82803; 83735; 84484; 85025; 85378; 85610; 85730; 87070; 87077; 87086; 87186; 87205; 93005; 93010; 94002; 94640; 94660; 96365; 96367; 96374; 96375; 99284; 99285; A4222; A4618; A7030; G8978; G8979; G8987; G8988; Q0177; G0378; G6040; J0330; J0456; J0696; J1940; J2060; J2920; J3490; J7620